=== PATIENT | female | born 1940 | race Caucasian/White ===

== ENCOUNTER 2018-10-14 07:50 | Emergency (ER) | payer MEDICARE ==
[~2018-10-14] VITALS: Ht 162.6 cm; Wt 131.8 kg
[2018-10-14 07:54] VITALS: BP 175/90
[2018-10-14] MEDS ORDERED: SULF1TAB49 PO (08:54)
== END 2018-10-14 09:35 | disposition home or self-care (01) ==
LOC: ER 07:50
DX: L03.116 Cellulitis of left lower limb (principal); L03.115 Cellulitis of right lower limb
CPT/HCPCS: 99283

== ENCOUNTER → 2020-08-01 | Outpatient (CLI) | payer MEDICARE ==
[2020-08-01] VITALS (9 sets, daily range): BP systolic 95–126; BP diastolic 42–62
[~2020-08-01] VITALS: Ht 165.1 cm; Wt 129.0 kg
[~2020-08-01] MED LIST: aminophylline 250mg/10ml inj. IV PRN; nitroGLYCERIN 0.4mg SUBLingual tab SL PRN; regadenoson 0.4mg/5ml syringe IV PRN
== END | disposition home or self-care (01) ==
LOC: RAD 08:06
PROVIDERS: ATTEND Internal Medicine Cardiovascular Disease
DX: Z01.810 Encounter for preprocedural cardiovascular examination (principal)
CPT/HCPCS: 78452; 93017; A9500; J0280; J2785

== ENCOUNTER 2021-10-16 13:46 | Emergency (ER) | payer MEDICARE ==
[~2021-10-16] VITALS: Ht 162.6 cm; Wt 131.8 kg
[~2021-10-16 13:46] MED LIST changes: +ALBU17AE26 INH; +ALBU6.7H9 INH; +HYDR25TA4 PO; +LEVO50TA8 PO; +LOSA50TA64 PO; +PRAM0.5T3 PO; -aminophylline 250mg/10ml inj. IV PRN; -nitroGLYCERIN 0.4mg SUBLingual tab SL PRN; -regadenoson 0.4mg/5ml syringe IV PRN
[2021-10-16 14:08] VITALS: BP 121/50
[2021-10-16 14:37] LABS: BASOPHILS % (AUTO) 0.2 % (0-1); EOSINOPHILS # (AUTO) 0.7 X10'3 (0-0.9); EOSINOPHILS % (AUTO) 10.2 % (0-6); HEMATOCRIT 37.4 % (35.0-45.0); HEMOGLOBIN 12.4 g/dl (12.0-16.0); LYMPHOCYTES # (AUTO) 0.5 X10'3 (1.1-4.8); LYMPHOCYTES % (AUTO) 7.8 % (21-51); MEAN CORPUSCULAR HEMOGLOBIN 28.7 PG (27.0-31.0); MEAN CORPUSCULAR HGB CONC 33.1 g/dL (33.0-36.5); MEAN CORPUSCULAR VOLUME 86.6 FL (78-98); MEAN PLATELET VOLUME 7.7 FL (7.4-10.4); MONOCYTES # (AUTO) 0.6 X10'3 (0-0.9); MONOCYTES % (AUTO) 9.1 % (2-12); NEUTROPHILS # (AUTO) 5.1 X10'3 (1.8-7.7); NEUTROPHILS % (AUTO) 72.7 % (42-75); PLATELET COUNT 262 X10'3 (140-440); RED BLOOD COUNT 4.32 X10'6 (4.20-5.60); RED CELL DISTRIBUTION WIDTH 16.6 % (11.5-14.5)
[2021-10-16 15:05] LABS: ALANINE AMINOTRANSFERASE 18 U/L (12-78); ALBUMIN 2.6 G/DL (3.4-5.0); ALBUMIN/GLOBULIN RATIO 0.6 (1.1-1.5); ALKALINE PHOSPHATASE 121 IU/L (46-116); ANION GAP 9 (8-16); ASPARTATE AMINO TRANSFERASE 23 U/L (10-37); BILIRUBIN,TOTAL 0.6 MG/DL (0.1-1.0); BLOOD UREA NITROGEN 24 MG/DL (7-18); BUN/CREATININE RATIO 32.9 (6.6-38.0); CALCIUM 8.2 MG/DL (8.5-10.1); CHLORIDE 105 MMOL/L (99-107); CREATININE 0.73 MG/DL (0.40-0.90); GLUCOSE 114 MG/DL (70-104); POTASSIUM 3.6 MMOL/L (3.5-5.1); SODIUM 139 MMOL/L (135-145); TOTAL CARBON DIOXIDE 24.9 MMOL/L (24-32); TOTAL PROTEIN 6.7 G/DL (6.4-8.2); eGFR 76 ML/MIN
[2021-10-16 15:15] LABS: ETHANOL < 0.010 GM/DL (0.0-0.010)
[2021-10-16 15:47] LABS: ABG BASE EXCESS -1.8 mmol/L (-2.0-2.0); ABG HCO3 21.6 mmol/L (22.0-26.0); ABG OXYGEN SATURATION 97.8 % (94-97); ABG PCO2 (T) 32.4 mmHg (32.0-45.0); ABG PO2 (T) 107.4 mmHg (75.0-100.0); ALLEN'S TEST POSITIVE; FCOHb 0.9 % (0.0-3.9); FLOW 2 L/min; FMetHb 0.2 % (0.0-1.5); FO2Hb 96.7 % (94-97); TOTAL HEMOGLOBIN 12.3 G/dl (12.0-16.0)
== END 2021-10-16 17:30 | disposition home or self-care (01) ==
LOC: ER 13:47
DX: I50.9 Heart failure, unspecified (principal); R41.82 Altered mental status, unspecified; R55 Syncope and collapse; I11.0 Hypertensive heart disease with heart failure; R06.02 Shortness of breath; R53.1 Weakness; F17.200 Nicotine dependence, unspecified, uncomplicated; Z98.890 Other specified postprocedural states; Z88.1 Allergy status to other antibiotic agents; Z79.899 Other long term (current) drug therapy
CPT/HCPCS: 36415; 36600; 70450; 71045; 72125; 80053; 80320; 82140; 82803; 83735; 83880; 84145; 84484; 85018; 85025; 85610; 93005; 99285

== ENCOUNTER 2025-01-17 07:43 | Day surgery (SDC) | payer MEDICARE ==
[2025-01-17] VITALS (13 sets, daily range): BP systolic 95–117; BP diastolic 43–67; PULSE 69–122; RESP 16–25; TEMP 98.5; O2SAT 76–97
[~2025-01-17] VITALS: Ht 162.6 cm; Wt 119.0 kg
[~2025-01-17 07:43] MED LIST changes: +ALBU6.7H14 INH; -ALBU6.7H9 INH
[2025-01-17] MEDS ORDERED: LIDOcaine 1% (10mg/ml) 2ml vial ONE (08:10)
[2025-01-17] MEDS ORDERED: verapamil 2.5 mg/ml inj IV ONE (08:10)
[2025-01-17] MEDS ORDERED: midazolam 1 mg/ML 2ml injection ONE (08:10)
[2025-01-17] MEDS ORDERED: iohexol 350 MG/ML 50ML vial IV ONE ×2 (08:11→10:53)
[2025-01-17] MEDS ORDERED: fentaNYL/PF 50MCG/1 ML 2ML syringe ONE (08:11)
[2025-01-17] MEDS ORDERED: heparin 1,000unit/ml 10ml vial 10 ML ONE (08:11)
[2025-01-17] MEDS ORDERED: iohexol 350MG/ML 100ml bottle IV ONE (08:11)
[2025-01-17] MEDS ORDERED: nitroGLYCERIN 500mcg/5mL D5W 5 ML IV ONE (08:14)
[2025-01-17] MEDS ORDERED: LORazepam 0.5 MG tablet PO PRN (08:20)
[2025-01-17] MEDS ORDERED: normal saline 1,000 ML IV SCH (08:20)
[2025-01-17] MEDS ORDERED: diphenhydrAMINE 25mg capsule PO PRN (08:20)
[2025-01-17] MEDS ORDERED: CYCL-920 PO (09:24)
[2025-01-17] MEDS ORDERED: GABA300C PO (09:24)
[2025-01-17] MEDS ORDERED: POTA-207 PO (09:24)
[2025-01-17] MEDS ORDERED: SENN-302 PO (09:34)
[2025-01-17] MEDS ORDERED: Paxlovid (09:34)
[2025-01-17] MEDS ORDERED: LEVO112T5 PO (09:34)
[2025-01-17] MEDS ORDERED: Lactobacillus (09:34)
[2025-01-17] MEDS ORDERED: GUAI-1170 (09:34)
[2025-01-17] MEDS ORDERED: ASCO500C17 PO (09:34)
[2025-01-17] MEDS ORDERED: POLY17PO10 PO (09:44)
[2025-01-17] MEDS ORDERED: NITR0.4T51 SL (09:44)
[2025-01-17] MEDS ORDERED: OXYC-145 PO (09:44)
[2025-01-17] MEDS ORDERED: PRAM0.5T12 PO (09:44)
[2025-01-17] MEDS ORDERED: MULT-1085 PO (09:44)
[2025-01-17] MEDS ORDERED: MAGN400O6 PO (09:44)
[2025-01-17] MEDS ORDERED: ENOX40SY7 SUBCUT (09:44)
[2025-01-17] MEDS ORDERED: [UNRECOGNIZED DRUG - CODE] PO (09:53)
[2025-01-17] MEDS ORDERED: FURO80TA87 PO (09:53)
[2025-01-17] MEDS ORDERED: EUCA1LOZ37 (09:53)
[2025-01-17] MEDS ORDERED: [UNRECOGNIZED DRUG - CODE] PO (09:53)
[2025-01-17] MEDS ORDERED: LACT-373 PO (09:55)
[2025-01-17 11:11] LABS: ISTAT HGB ART 12.9 g/dl (12.0-16.0); ISTAT Hct ART 38 %PCV (35-45); ISTAT O2 SATURATION ARTERIAL 94 % (95-98); ISTAT SOURCE ART
[2025-01-17] MEDS ORDERED: normal saline 1000ml 1,000 ML IV SCH (12:05)
[2025-01-17 12:31] LABS: ISTAT HGB MIX 12.6 g/dl (12.0-16.0); ISTAT Hct MIX 37 %PCV (35-45); ISTAT O2 SATURATION MIX VENOUS 65 % (60-80); ISTAT SOURCE VEN
== END 2025-01-17 17:10 ==
LOC: SSTAY O 07:43
PROVIDERS: ATTEND Internal Medicine Cardiovascular Disease
DX: I35.0 Nonrheumatic aortic (valve) stenosis (principal); I25.10 Atherosclerotic heart disease of native coronary artery without angina pectoris; I10 Essential (primary) hypertension; E78.5 Hyperlipidemia, unspecified; Z85.038 Personal history of other malignant neoplasm of large intestine; G47.30 Sleep apnea, unspecified; Z98.890 Other specified postprocedural states; Z90.49 Acquired absence of other specified parts of digestive tract; Z82.49 Family history of ischemic heart disease and other diseases of the circulatory system; E03.9 Hypothyroidism, unspecified; K21.9 Gastro-esophageal reflux disease without esophagitis; Z79.899 Other long term (current) drug therapy
CPT/HCPCS: 82803; 85014; 93005; 93460; 99152; 99153; A4615; A6258; A6402; C1725; C1751; C1769; C1894; J1644; J2003; J2250; J3010; J3490; J7030; Q9967; 76937